=== PATIENT | male | born 1990 | race Caucasian/White ===

== ENCOUNTER 2017-02-21 16:34 | Inpatient (IN) | payer OTHER ==
[2017-02-21 15:54] LABS: BASO % 0.2 % (0-2); BASO ABSOLUTE COUNT 0.1 tho/cmm (0.0-0.2); HGB-HEMOGLOBIN 16.9 gm/dl (13.5-17.0); IMMATURE GRANULOCYTES ABSOLUTE 0.13 tho/cmm (0-0.03); IMMATURE GRANULOCYTES PERCENT 0.4 % (0-0.3); LYMPH % 6.8 % (20-45); LYMPH ABSOLUTE COUNT 2.1 tho/cmm (0.8-4.5); MCH (MEAN CORPUSCULAR HGB) 33.3 pg (28.0-32.0); MCV (MEAN CELL VOLUME) 88.6 fl (82.0-96.0); MEAN PLATELET VOLUME 11.5 cmc (9.4-12.4); MONO % 3.8 % (0-12); MONOCYTE ABSOLUTE COUNT 1.2 tho/cmm (0.0-1.2); NEUTROPHIL ABSOLUTE COUNT 27.4 tho/cmm (1.6-8.0); NEUTROPHIL-AUTOMATED 27.4 tho/cmm (1.6-8.0); NEUTROPHILS % 88.8 % (40-80); PLATELET COUNT 330 tho/cmm (150-450); RED BLOOD COUNT 5.08 mil/cmm (4.40-5.70); RED CELL DISTRIBUTION WIDTH 11.7 % (12.4-16.4); WHITE BLOOD COUNT 30.9 tho/cmm (4.0-10.0)
[2017-02-21 15:57] LABS: MCHC MEAN CORPUSCULAR HGB CONC 37.6 % (32.0-36.0)
[2017-02-21 16:07] LABS: ALB/GLOB RATIO 1.6 (0.8-2.0); ALBUMIN 4.8 g/dl (3.5-5.0); ALKALINE PHOSPHATASE 62 U/L (33-138); ALT/SGPT 23 U/L (12-78); ANION GAP 15 mmol/L (0-20); BILIRUBIN,TOTAL 2.4 mg/dl (0.0-1.5); BLOOD UREA NITROGEN 15 mg/dl (6-24); CALCIUM 9.7 mg/dl (8.5-10.5); CHLORIDE 105 mmol/l (96-110); CREATININE 1.41 mg/dl (0.60-1.30); GLUCOSE 223 mg/dL (70-110); LIPASE 401 U/L (73-393); POTASSIUM 3.2 mmol/L (3.7-5.1); SODIUM 140 mmol/L (135-145); eGFR VALUE FOR BLACK 78 mL/Min
[2017-02-21 16:08] LABS: AST/SGOT 29 U/L (10-40)
[2017-02-21 16:33] LABS: CARBON DIOXIDE-VENOUS 23 mmol/L (21-33)
[~2017-02-21 16:34] MED LIST: BENTYL20 M1 PO; COMPAZINE25 MG/SUPP PR; K-DUR20 ME1 PO; K-DUR20 ME2 PO; LEXAPRO10 M2 PO; NEXIUM40 MG PO; NO HOME MEDICATION XX; NORCO 5-325 TA1 EACH PO; NORCO 5/325 TAB1 TAB PO; OMEPRAZOLE40 M2 PO; PHENERGAN25 M2 RC; PRILOSEC OTC20 M1 PO; PRILOSEC20 MG PO; PROMETHAZINE HC25 M3 PO; PROMETHAZINE12.5 M2 PO; PROMETHAZINE25 MG PO; TYLENOL325 M2 PO; ZOFRAN ODT4 MG PO; ZOFRAN ODT4 MG/UDTAB PO; ZOFRAN SL; ZOFRAN4 M2 PO; ZOFRAN4 MG PO; ZOFRAN8 MG PO; [UNRECOGNIZED DRUG - REMARK]; phenergan PO
[2017-02-21] MEDS ORDERED: OMEPRAZOLE20 M4 PO (20:12)
[2017-02-22 05:59] LABS: BASO % 0.1 % (0-2); EOS % 0.1 % (0-7); HCT-HEMATOCRIT 38.6 % (36.0-53.5); HGB-HEMOGLOBIN 13.9 gm/dl (13.5-17.0); IMMATURE GRANULOCYTES ABSOLUTE 0.05 tho/cmm (0-0.03); IMMATURE GRANULOCYTES PERCENT 0.3 % (0-0.3); LYMPH % 10.6 % (20-45); LYMPH ABSOLUTE COUNT 1.6 tho/cmm (0.8-4.5); MCH (MEAN CORPUSCULAR HGB) 32.3 pg (28.0-32.0); MCV (MEAN CELL VOLUME) 89.8 fl (82.0-96.0); MEAN PLATELET VOLUME 10.8 cmc (9.4-12.4); MONO % 8.8 % (0-12); MONOCYTE ABSOLUTE COUNT 1.3 tho/cmm (0.0-1.2); NEUTROPHIL ABSOLUTE COUNT 11.8 tho/cmm (1.6-8.0); NEUTROPHIL-AUTOMATED 11.8 tho/cmm (1.6-8.0); NEUTROPHILS % 80.1 % (40-80); PLATELET COUNT 203 tho/cmm (150-450)
[2017-02-22 06:05] LABS: WHITE BLOOD COUNT 14.7 tho/cmm (4.0-10.0)
[2017-02-22 06:18] LABS: ALB/GLOB RATIO 1.6 (0.8-2.0); ALBUMIN 3.8 g/dl (3.5-5.0); ALKALINE PHOSPHATASE 46 U/L (33-138); ALT/SGPT 18 U/L (12-78); AMYLASE 50 U/L (20-90); ANION GAP 10 mmol/L (0-20); AST/SGOT 19 U/L (10-40); BLOOD UREA NITROGEN 14 mg/dl (6-24); CALCIUM 8.5 mg/dl (8.5-10.5); CARBON DIOXIDE-VENOUS 27 mmol/L (22-32); CHLORIDE 109 mmol/l (96-110); CREATININE 1.12 mg/dl (0.60-1.30); MAGNESIUM 1.9 mg/dl (1.3-2.6); PHOSPHOROUS 3.9 mg/dl (2.5-4.9); SODIUM 142 mmol/L (135-145); eGFR VALUE FOR BLACK >90 mL/Min
[2017-02-22 06:19] LABS: GLUCOSE 108 mg/dL (70-110); LIPASE 244 U/L (73-393)
[2017-02-22 09:12] LABS: WBC MORPHOLOGY VARIANT LYMPHS
[2017-02-22] MEDS ORDERED: [UNRECOGNIZED DRUG - REMARK] ×2 (14:06→14:07)
[2017-02-22] MEDS ORDERED: ZOFRAN4 M2 PO (14:07)
--- NOTE | 2017-02-22 14:33 | NUR ---
VIRTUAL CARE NOTE: PT DRESSED STATES DOING GOOD, READY FOR DISCHARGE INSTRUCTIONS. INFORMATION GIVEN TO PT, QUESTIONS ANSWERED ABOUT NEW MED. PT DENIES FURTHER QUESTIONS. INFORMED FLOOR NURSE DISCHARGE TEACHING DONE.
[2017-05-23] MEDS ORDERED: SERTRALINE HCL50 M4 PO (23:51)
== END 2017-02-22 14:35 | DRG 897 ==
LOC: EDMED 16:34 → EMR2 18:09 → 5WD 20:00
PROVIDERS: Nurse Practitioner Family; ADMIT Internal Medicine
DX: F12.988 Cannabis use, unspecified with other cannabis-induced disorder (principal); N17.9 Acute kidney failure, unspecified; E87.2 Acidosis; R10.13 Epigastric pain; T40.7X1A Poisoning by cannabis (derivatives), accidental (unintentional), initial encounter; K21.9 Gastro-esophageal reflux disease without esophagitis; R11.2 Nausea with vomiting, unspecified; Y92.009 Unspecified place in unspecified non-institutional (private) residence as the place of occurrence of the external cause; Z87.11 Personal history of peptic ulcer disease; N26.1 Atrophy of kidney (terminal); Z88.2 Allergy status to sulfonamides; E87.6 Hypokalemia; Z90.49 Acquired absence of other specified parts of digestive tract; Z91.011 Allergy to milk products; Z87.891 Personal history of nicotine dependence; E80.7 Disorder of bilirubin metabolism, unspecified; D72.829 Elevated white blood cell count, unspecified
CPT/HCPCS: J1170; J2270; J2405; J2543; J2765; J3480; J7030